=== PATIENT | male | born 1965 | race Two or more races ===

== ENCOUNTER 2016-11-12 10:41 | Inpatient (IN) | payer MEDICAID ==
[~2016-11-12] VITALS: Ht 175.3 cm; Wt 108.4 kg
[~2016-11-12 10:41] MED LIST: ASCO500T9 PO; BACL10TA PO; BISA10SU8 RC; CHLO15MO2 MM; CLON0.1T PO; ENOX40DI SUBCUT; ESOM40CA PO; LACT1CAP61 PO; LEVE500T9 PO; LORA10TA68 PO; MELA1TAB10 PO; MULT1CAP34 PO; NA P133E RC; OXYC-162 PO; SULF1TAB48 PO; TRAM50TA92 PO
[2016-11-12 11:00] LABS: BASOPHILS % (AUTO) 0.2 % (0.0-2.0); DIFF TOTAL % 100 %; EOSINOPHILS % (AUTO) 0.2 % (0.0-6.0); HEMATOCRIT 46 % (39-51); LYMPHOCYTES # (AUTO) 2.6 /CMM (0.8-4.8); LYMPHOCYTES % (AUTO) 18.1 % (20.0-44.0); MEAN CORPUSCULAR HEMOGLOBIN 27 PG (26.0-33.0); MEAN CORPUSCULAR HGB CONC 33 g/dl (31.0-36.0); MEAN CORPUSCULAR VOLUME 82 fL (80-96); MONOCYTES # (AUTO) 1.1 /CMM (0.1-1.30); MONOCYTES % (AUTO) 7.7 % (2.0-12.0); NEUTROPHILS # (AUTO) 10.5 /CMM (1.8-8.9); NEUTROPHILS % (AUTO) 73.8 % (43.0-81.0); PLATELET COUNT (AUTO) 271 /CMM (150-450); RED BLOOD CELL COUNT(AUTO) 5.55 MIL/uL (4.5-6.0); WHITE BLOOD COUNT (AUTO) 14.2 K/uL (4.3-11.0)
[2016-11-12 11:10] LABS: ANION GAP 11 (5-14); CALCIUM, SERUM 9.1 mg/dL (8.5-10.1); CARBON DIOXIDE 31 mmol/L (21-32); CHLORIDE 103 mmol/L (98-107); CREATININE 1.1 mg/dL (0.6-1.3); GFR 71 mL/min (>60); GLUCOSE 130 mg/dL (74-106); POTASSIUM 4.3 mmol/L (3.5-5.1); SODIUM SERUM 141 mmol/L (136-145); UREA NITROGEN, BLOOD 13 mg/dL (7-18)
[2016-11-12 11:14] LABS: PROTHROMBIN TIME 10.5 SECS (9.5-12.7)
[2016-11-12 11:18] LABS: TROPONIN I < 0.017 ng/mL (0.00-0.056)
[2016-11-12] MEDS ORDERED: ALBU2.5V13 IH ×2 (11:48)
[2016-11-12] MEDS ORDERED: MAGN400O6 PO (11:48)
[2016-11-12] MEDS ORDERED: MULT-24 PO (11:48)
[2016-11-12] MEDS ORDERED: GABA-534 PO (11:48)
[2016-11-12] MEDS ORDERED: RIVA10TA PO (11:48)
[2016-11-12] MEDS ORDERED: LEVE250T2 PO (11:48)
[2016-11-12] MEDS ORDERED: IPRA0.2S9 IH ×2 (11:48)
[2016-11-12] MEDS ORDERED: CT SWABBABLE VALVE TRANS SET 1 EA INFUS.SET MC ONE (12:35)
[2016-11-12] MEDS ORDERED: IOHEXOL-350 100 ML VIAL IV ONE (12:35)
[2016-11-12] MEDS ORDERED: IV NS 0.9% 250 ML IV ONE (12:35)
[2016-11-12 15:45] VITALS: BP 102/69
[2016-11-12] MEDS ORDERED: HYDROCODONE/APAP 5/325MG 1 EACH TABLET PO PRN (17:30)
[2016-11-12] MEDS ORDERED: ONDANSETRON HCL/PF 4 MG/2 ML VIAL IVP PRN (17:30)
[2016-11-12] MEDS ORDERED: MAG HYDROX/AL HYDROX/SIMETH 30 ML UDC PO PRN (17:30)
[2016-11-12] MEDS ORDERED: CLONIDINE HCL 0.1 MG TABLET PO PRN (17:30)
[2016-11-12] MEDS ORDERED: Z GUARD REMEDY 2 OZ OINT TP PRN (17:30)
[2016-11-12] MEDS ORDERED: oxyCODONE/APAP (5/325 MG) 1 UDTAB TABLET PO PRN (17:30)
[2016-11-12] MEDS ORDERED: ACETAMINOPHEN 325 MG TABLET PO PRN (17:30)
[2016-11-12 18:22] LABS: AMYLASE 22 U/L (25-115)
[2016-11-12 20:16] VITALS: BP 103/69
[2016-11-12] MEDS: GABAPENTIN 300 MG CAPSULE PO SCH (21:00)
[2016-11-12] MEDS: CHLORHEXIDINE GLUCONATE 15 ML UDC MM SCH (21:00)
[2016-11-12] MEDS: BACLOFEN (10 MG) 10 MG TABLET PO SCH (21:00)
[2016-11-12] MEDS ORDERED: ZOLPIDEM TARTRATE 5 MG TABLET PO PRN (22:00)
[2016-11-13] VITALS (7 sets, daily range): BP systolic 93–155; BP diastolic 61–92
[2016-11-13] MEDS: GABAPENTIN 300 MG CAPSULE PO SCH ×3 (05:00→20:41)
[2016-11-13] MEDS: BACLOFEN (10 MG) 10 MG TABLET PO SCH ×3 (05:00→20:42)
[2016-11-13 06:54] LABS: BASOPHILS % (AUTO) 0.3 % (0.0-2.0); DIFF TOTAL % 100 %; EOSINOPHILS % (AUTO) 0.2 % (0.0-6.0); HEMATOCRIT 44 % (39-51); HEMOGLOBIN 14.2 g/dL (13.5-17.5); LYMPHOCYTES # (AUTO) 2.2 /CMM (0.8-4.8); LYMPHOCYTES % (AUTO) 17.7 % (20.0-44.0); MEAN CORPUSCULAR HEMOGLOBIN 27 PG (26.0-33.0); MEAN CORPUSCULAR HGB CONC 32 g/dl (31.0-36.0); MEAN CORPUSCULAR VOLUME 84 fL (80-96); MONOCYTES # (AUTO) 1.2 /CMM (0.1-1.30); MONOCYTES % (AUTO) 10.1 % (2.0-12.0); NEUTROPHILS # (AUTO) 8.8 /CMM (1.8-8.9); NEUTROPHILS % (AUTO) 71.7 % (43.0-81.0); PLATELET COUNT (AUTO) 252 /CMM (150-450); RED BLOOD CELL COUNT(AUTO) 5.26 MIL/uL (4.5-6.0); WHITE BLOOD COUNT (AUTO) 12.2 K/uL (4.3-11.0)
[2016-11-13 07:05] LABS: CALCIUM, SERUM 9.1 mg/dL (8.5-10.1); CREATININE 1.1 mg/dL (0.6-1.3); PHOSPHORUS 3.9 mg/dL (2.5-4.9); POTASSIUM 4.1 mmol/L (3.5-5.1)
[2016-11-13] MEDS: PANTOPRAZOLE 40 MG TABLET.DR PO SCH (07:30)
[2016-11-13] MEDS: TRAMADOL HCL 50 MG TABLET PO SCH ×2 (09:00→17:45)
[2016-11-13] MEDS: LEVETIRACETAM (250 MG) 250 MG TABLET PO SCH ×2 (09:00→17:44)
[2016-11-13] MEDS: LORATADINE 10 MG TABLET PO SCH (09:00)
[2016-11-13] MEDS: CHLORHEXIDINE GLUCONATE 15 ML UDC MM SCH ×2 (09:00→20:42)
[2016-11-13] MEDS: MAGNESIUM HYDROXIDE 30 ML UDC PO PRN ×2 (13:59→20:50)
[2016-11-13] MEDS: RIVAROXABAN 10 MG TABLET PO SCH (17:46)
[2016-11-13] MEDS ORDERED: LACTULOSE 10 G/15 ML UDC (PYXIS) PO PRN (21:00)
[2016-11-13] MEDS ORDERED: MAGNESIUM CITRATE 296 ML BOTTLE PO ONE (21:00)
[2016-11-13] MEDS ORDERED: BISACODYL SUPP (10 MG) 10 MG/SUPP.RECT SUPP.RECT RC PRN (21:00)
[2016-11-13] MEDS ORDERED: MINERAL OIL 133 ML (PYXIS) 1 EA ENEMA RC ONE ×2 (21:00→22:07)
[2016-11-13] MEDS ORDERED: SENNOSIDES 8.6 MG TABLET ONE (22:07)
[2016-11-13] MEDS ORDERED: MAGNESIUM CITRATE 296 ML BOTTLE ONE (22:07)
[2016-11-13] MEDS: SENNOSIDES 8.6 MG TABLET PO SCH (22:12)
[2016-11-13] MEDS ORDERED: SIMETHICONE 80 MG TAB.CHEW PO PRN (23:30)
[2016-11-14] MEDS: BACLOFEN (10 MG) 10 MG TABLET PO SCH ×3 (05:26→21:34)
[2016-11-14] MEDS: GABAPENTIN 300 MG CAPSULE PO SCH ×3 (05:26→21:32)
[2016-11-14] MEDS: PANTOPRAZOLE 40 MG TABLET.DR PO SCH (06:11)
[2016-11-14] MEDS ORDERED: BISACODYL SUPP (10 MG) 10 MG/SUPP.RECT SUPP.RECT RC ONE ×2 (06:23→06:30)
[2016-11-14 08:00] VITALS: BP 99/71
[2016-11-14 09:00] LABS: BASOPHILS % (AUTO) 0.4 % (0.0-2.0); DIFF TOTAL % 100 %; EOSINOPHILS # (AUTO) 0.1 /CMM (0.0-0.7); EOSINOPHILS % (AUTO) 0.7 % (0.0-6.0); HEMATOCRIT 45 % (39-51); HEMOGLOBIN 14.2 g/dL (13.5-17.5); LYMPHOCYTES # (AUTO) 2.5 /CMM (0.8-4.8); LYMPHOCYTES % (AUTO) 20.9 % (20.0-44.0); MEAN CORPUSCULAR HEMOGLOBIN 27 PG (26.0-33.0); MEAN CORPUSCULAR HGB CONC 32 g/dl (31.0-36.0); MEAN CORPUSCULAR VOLUME 84 fL (80-96); MONOCYTES # (AUTO) 1.2 /CMM (0.1-1.30); MONOCYTES % (AUTO) 10.1 % (2.0-12.0); NEUTROPHILS # (AUTO) 8.2 /CMM (1.8-8.9); NEUTROPHILS % (AUTO) 67.9 % (43.0-81.0); PLATELET COUNT (AUTO) 237 /CMM (150-450); RED BLOOD CELL COUNT(AUTO) 5.36 MIL/uL (4.5-6.0); WHITE BLOOD COUNT (AUTO) 12.1 K/uL (4.3-11.0)
[2016-11-14] MEDS: CHLORHEXIDINE GLUCONATE 15 ML UDC MM SCH ×2 (09:00→21:32)
[2016-11-14] MEDS: LEVETIRACETAM (250 MG) 250 MG TABLET PO SCH ×2 (09:01→17:10)
[2016-11-14] MEDS: LORATADINE 10 MG TABLET PO SCH (09:01)
[2016-11-14] MEDS: TRAMADOL HCL 50 MG TABLET PO SCH ×2 (09:04→17:10)
[2016-11-14 09:10] LABS: CALCIUM, SERUM 9.3 mg/dL (8.5-10.1); PHOSPHORUS 3.4 mg/dL (2.5-4.9); POTASSIUM 4.2 mmol/L (3.5-5.1)
[2016-11-14] MEDS ORDERED: PEG 3350/NA SULF,BICARB,CL/KCL 4,000 ML BOTTLE PO ONE (13:00)
[2016-11-14 16:00] VITALS: BP 103/72
[2016-11-14] MEDS: RIVAROXABAN 10 MG TABLET PO SCH (17:14)
[2016-11-14 20:00] VITALS: BP 97/66
[2016-11-14] MEDS: SENNOSIDES 8.6 MG TABLET PO SCH (21:33)
[2016-11-14 22:00] VITALS: BP 97/66
[2016-11-15] MEDS: BACLOFEN (10 MG) 10 MG TABLET PO SCH ×2 (05:38→13:38)
[2016-11-15] MEDS: GABAPENTIN 300 MG CAPSULE PO SCH ×2 (05:38→13:38)
[2016-11-15 07:20] LABS: BASOPHILS % (AUTO) 0.2 % (0.0-2.0); DIFF TOTAL % 100 %; EOSINOPHILS # (AUTO) 0.2 /CMM (0.0-0.7); EOSINOPHILS % (AUTO) 1.4 % (0.0-6.0); HEMATOCRIT 39 % (39-51); HEMOGLOBIN 12.7 g/dL (13.5-17.5); LYMPHOCYTES # (AUTO) 1.7 /CMM (0.8-4.8); LYMPHOCYTES % (AUTO) 14.4 % (20.0-44.0); MEAN CORPUSCULAR HEMOGLOBIN 27 PG (26.0-33.0); MEAN CORPUSCULAR HGB CONC 32 g/dl (31.0-36.0); MEAN CORPUSCULAR VOLUME 83 fL (80-96); MONOCYTES # (AUTO) 0.9 /CMM (0.1-1.30); MONOCYTES % (AUTO) 7.8 % (2.0-12.0); NEUTROPHILS # (AUTO) 8.8 /CMM (1.8-8.9); NEUTROPHILS % (AUTO) 76.2 % (43.0-81.0); PLATELET COUNT (AUTO) 245 /CMM (150-450); WHITE BLOOD COUNT (AUTO) 11.6 K/uL (4.3-11.0)
[2016-11-15 07:33] LABS: CALCIUM, SERUM 8.7 mg/dL (8.5-10.1); PHOSPHORUS 3.3 mg/dL (2.5-4.9); POTASSIUM 4.1 mmol/L (3.5-5.1)
[2016-11-15] MEDS: PANTOPRAZOLE 40 MG TABLET.DR PO SCH (09:12)
[2016-11-15] MEDS: CHLORHEXIDINE GLUCONATE 15 ML UDC MM SCH (09:12)
[2016-11-15] MEDS: LORATADINE 10 MG TABLET PO SCH (09:13)
[2016-11-15] MEDS: TRAMADOL HCL 50 MG TABLET PO SCH ×2 (09:13→18:40)
[2016-11-15] MEDS: LEVETIRACETAM (250 MG) 250 MG TABLET PO SCH ×2 (09:13→18:40)
[2016-11-15 10:17] VITALS: BP 100/58
[2016-11-15 13:07] VITALS: BP 100/58
[2016-11-15] MEDS: RIVAROXABAN 10 MG TABLET PO SCH (18:49)
[2016-11-15 20:00] VITALS: BP 146/96
[2016-11-15] MEDS ORDERED: SORB30SO2 PO (20:12)
[2016-11-15] MEDS ORDERED: SENN-18 PO (20:12)
[2016-11-15] MEDS ORDERED: LACT10SO PO (20:12)
[2016-11-15 20:26] VITALS: BP 146/96
== END 2016-11-15 21:45 | DRG 254 ==
LOC: ER 10:44 → TELE 14:52 → MED 11-13 09:28
PROVIDERS: ADMIT Nurse Practitioner Acute Care; ATTEND Nurse Practitioner Acute Care
DX: K59.00 Constipation, unspecified (principal); G82.50 Quadriplegia, unspecified; J96.10 Chronic respiratory failure, unspecified whether with hypoxia or hypercapnia; D68.59 Other primary thrombophilia; Z93.0 Tracheostomy status; K76.0 Fatty (change of) liver, not elsewhere classified; M47.814 Spondylosis without myelopathy or radiculopathy, thoracic region; G62.9 Polyneuropathy, unspecified; I10 Essential (primary) hypertension; E78.5 Hyperlipidemia, unspecified; K21.9 Gastro-esophageal reflux disease without esophagitis; F32.9 Major depressive disorder, single episode, unspecified; F41.9 Anxiety disorder, unspecified; Z68.35 Body mass index [BMI] 35.0-35.9, adult; E66.9 Obesity, unspecified; K40.20 Bilateral inguinal hernia, without obstruction or gangrene, not specified as recurrent
CPT/HCPCS: 36415; 71010-TC; 74000-TC; 80048-TC; 80061-TC; 82150-TC; 83690-TC; 83735-TC; 83880; 84100-TC; 84484-TC; 85025-TC; 85730-TC; 87040-TC; 87081-TC; 93307-TC; A4606; A6402; J2405; J7050; Q9967; Z7610